=== PATIENT | female | born 1965 | race Caucasian/White ===

== ENCOUNTER 2021-05-06 11:13 | Emergency (ER) | payer MEDICARE, OTHER ==
[~2021-05-06] VITALS: Ht 154.9 cm; Wt 63.6 kg
[2021-05-06] MEDS ORDERED: ALBU8HFA PO (11:29)
[2021-05-06] MEDS ORDERED: GABA-533 PO (11:29)
[2021-05-06] MEDS ORDERED: PARO-37 PO (11:29)
[2021-05-06] MEDS ORDERED: BUSP15 PO (11:29)
[2021-05-06] MEDS ORDERED: BUPIVACAINE HCL/PF 0.25% 10 ML VIAL SQ ONE (11:45)
[2021-05-06] MEDS ORDERED: IBUPROFEN 800 MG TABLET PO ONE (12:45)
[2021-05-06 13:30] VITALS: BP 122/80
== END 2021-05-06 13:32 | disposition home or self-care (01) ==
LOC: EMS 11:18
DX: L02.01 Cutaneous abscess of face (principal); F41.9 Anxiety disorder, unspecified; J45.909 Unspecified asthma, uncomplicated; F31.9 Bipolar disorder, unspecified; Z88.8 Allergy status to other drugs, medicaments and biological substances
CPT/HCPCS: 10060; 99283; J3490

== ENCOUNTER 2021-05-08 12:19 | Emergency (ER) | payer MEDICARE, OTHER ==
[~2021-05-08] VITALS: Ht 172.7 cm; Wt 68.2 kg
[~2021-05-08 12:19] MED LIST: ALBU8HFA PO; BUSP15 PO; GABA-533 PO; PARO-37 PO
[2021-05-08] MEDS ORDERED: DIPH25TA51 PO (13:52)
[2021-05-08] MEDS ORDERED: BUSP15 PO (13:52)
[2021-05-08] MEDS ORDERED: DOXY-354 PO (13:52)
[2021-05-08] MEDS ORDERED: DIVA-80 PO (13:52)
[2021-05-08] MEDS ORDERED: GABA-1201 PO (13:52)
[2021-05-08] MEDS ORDERED: ARIP20TA PO (13:52)
[2021-05-08] MEDS ORDERED: LIDOCAINE/PF 1% 2 ML VIAL IM ONE (14:00)
[2021-05-08] MEDS ORDERED: SULFAMETHOX/TRIMETH DS 800-160 MG/TABLET PO ONE (14:00)
[2021-05-08] MEDS ORDERED: CefTRIAXone SODIUM 1 GM/VIAL IM ONE (14:00)
[2021-05-08] MEDS ORDERED: HYDROCODONE/ACETAMINOPHEN 5-325 MG TABLET PO ONE (14:00)
[2021-05-08 14:42] LABS: BASOPHILS % (AUTO) 0.8 % (0.0-2.0); EOSINOPHILS % (AUTO) 2.2 % (1.0-6.0); HEMATOCRIT 32.7 % (36-46); HEMOGLOBIN 10.8 g/dL (12.0-16.0); LYMPHOCYTES % (AUTO) 17.1 % (22.0-44.0); MEAN CORPUSCULAR HEMOGLOBIN 30.8 pg (26.0-34.0); MEAN CORPUSCULAR HGB CONC 33.1 G/dL (31.0-37.0); MEAN CORPUSCULAR VOLUME 93 fL (80-100); MONOCYTES # (AUTO) 1.1 K/uL (0.1-1.0); MONOCYTES % (AUTO) 9.5 % (2.0-9.0); NEUTROPHILS # (AUTO) 8.2 K/uL (1.8-7.7); NEUTROPHILS % (AUTO) 70.4 % (40.0-70.0); PLATELET COUNT (AUTO) 339 K/uL (150-450); RED BLOOD CELL COUNT(AUTO) 3.51 MIL/uL (4.00-5.20); RED CELL DISTRIBUTION WIDTH 13.9 % (11.5-14.5)
[2021-05-08 14:53] LABS: ANION GAP 8 mmol/L (8-16); CALCIUM, TOTAL 8.9 mg/dL (8.8-10.5); CARBON DIOXIDE 30 mmol/L (22-29); CHLORIDE 102 mmol/L (98-107); CREATININE 0.77 mg/dL (0.60-1.30); GLOMERULAR FILTR. RATE CALC > 60 mL/min (>60); GLUCOSE,RANDOM 85 mg/dL (70-110); POTASSIUM 5.1 mmol/L (3.5-5.1); SODIUM SERUM 140 mmol/L (136-145); UREA NITROGEN, BLOOD 17 mg/dL (7-18)
[2021-05-08 15:29] VITALS: BP 115/59
== END 2021-05-08 16:20 | disposition home or self-care (01) ==
LOC: EMS 12:21
DX: L03.211 Cellulitis of face (principal); F31.9 Bipolar disorder, unspecified; F41.9 Anxiety disorder, unspecified; J45.909 Unspecified asthma, uncomplicated; Z88.8 Allergy status to other drugs, medicaments and biological substances; Z79.899 Other long term (current) drug therapy
CPT/HCPCS: 36415; 80048; 85025; 96372; 99283; J0696; J3490